=== PATIENT | female | born 1935 | race Caucasian/White ===

== ENCOUNTER 2017-06-30 01:34 | Inpatient (IN) ==
--- NOTE | 2017-06-24 08:48 | EKG Report ---
Test Performed on : 06/24/2017 08:17:50 AM Test Reason : JOINT CAMP Blood Pressure : / mmHG Vent. Rate : 068 BPM Atrial Rate : 068 BPM P-R Int : 164 ms QRS Dur : 088 ms QT Int : 374 ms P-R-T Axes : 064 -14 042 degrees QTc Int : 397 ms Normal sinus rhythm. Septal infarct , age undetermined Abnormal ECG When compared with ECG of 17-FEB-2011 09:17, premature ventricular complexes. are no longer present Questionable change in QRS axis Confirmed by Fabricio MALIK, Flavio Lee ([id number]) on 06/26/2017 6:38:22 AM
[2017-06-24 09:35] LABS: MANUAL DIFF NEEDED? NO; URINE MICRO REVIEW NEEDED? NO; URINE SOURCE CLEAN CATCH
[2017-06-24 09:38] LABS: BILIRUBIN URINE NEGATIVE (NEGATIVE); BLOOD URINE NEGATIVE (NEGATIVE); COLOR YELLOW; GLUCOSE URINE NEGATIVE (NEGATIVE); LEUKOCYTES URINE SMALL (NEGATIVE); NITRITE URINE NEGATIVE (NEGATIVE); PH URINE 6.5; PROTEIN URINE NEGATIVE (NEGATIVE); SP GRAVITY URINE 1.007; TURBIDITY URINE CLEAR (CLEAR); UROBILINOGEN URINE NORMAL (NORMAL)
[2017-06-24 09:39] LABS: BASO% 0.4 % (0.0-0.8); EOS# 0.33 X1000 (0.0-0.7); EOS% 5.9 % (0.0-10.0); HEMATOCRIT 35.8 % (37.0-47.0); HEMOGLOBIN 11.9 g/dL (12.0-16.0); LYMPH# 1.84 X1000 (1.2-3.4); MCH 30.1 PG (27-31); MCHC 33.2 g/dL (33-37); MCV 90.4 FL (81-99); MONO# 0.78 X1000 (0.11-0.59); MPV 9.8 FL (7.4-10.4); NEUT% 46.7 % (42.2-75.2); PLT 266 X1000 (130-400); RBC 3.96 XMIL (4.2-5.4); UR EPITHELIAL CELLS <10 /HPF (<10); URINE BACTERIA NEGATIVE /HPF; URINE RBC <10 /HPF (<10); URINE WBC <10 /HPF (<10)
[2017-06-24 09:51] LABS: INR 1.01; PROTIME 10.6 Seconds (9.2-11.7); PTT 25.9 Seconds (22.0-36.0)
[2017-06-24 10:08] LABS: AGAP 10; BUN 13 mg/dL (8-22); CALCIUM 8.7 mg/dL (8.8-10.2); CHLORIDE 93 mmol/L (98-107); COSMO 262; POTASSIUM 4.4 mmol/L (3.5-5.1); SODIUM 131 mmol/L (136-145); TCO2 28 mmol/L (25-35)
[2017-06-30] MEDS ORDERED: ANTIVERT PO PRN (07:33)
[2017-06-30] MEDS ORDERED: VERSED ONE (08:25)
[2017-06-30] MEDS ORDERED: ROBINUL ONE (08:26)
[2017-06-30] MEDS ORDERED: PEPCID ONE (08:57)
[2017-06-30] MEDS ORDERED: COLACE ONE (08:57)
[2017-06-30] MEDS ORDERED: REGLAN ONE (08:58)
[2017-06-30] MEDS ORDERED: KEFZOL 1 GM/D5W 1 GM/50 ML IVPB ONE (08:58)
[2017-06-30] MEDS ORDERED: LYRICA ONE (08:58)
[2017-06-30] MEDS ORDERED: CELEBREX ONE (08:58)
[2017-06-30] MEDS ORDERED: LR 1,000 ML ONE (08:59)
[2017-06-30] MEDS: PEPCID PO SCH (09:15)
[2017-06-30] MEDS ORDERED: DIPRIVAN 1% ONE (09:39)
[2017-06-30] MEDS ORDERED: XYLOCAINE-MPF 2% ONE (09:39)
[2017-06-30] MEDS ORDERED: SODIUM CHLORIDE 0.9% ONE (09:43)
[2017-06-30] MEDS ORDERED: TORADOL ONE ×2 (09:45→10:11)
[2017-06-30] MEDS ORDERED: DURAMORPH ONE (09:45)
[2017-06-30] MEDS ORDERED: NEOSPORIN G.U. IRRIGANT ONE (09:46)
[2017-06-30] MEDS ORDERED: CYKLOKAPRON 1,000 MG/NS 1,000 MG/100 ML IVPB ONE ×2 (09:46→09:47)
[2017-06-30] MEDS ORDERED: EXPAREL 1.3% ONE (09:46)
[2017-06-30] MEDS ORDERED: VANCOMYCIN ONE (09:46)
[2017-06-30] MEDS ORDERED: MARCAINE 0.25% PF ONE (09:49)
[2017-06-30] MEDS ORDERED: KETAMINE ONE (10:02)
[2017-06-30] MEDS ORDERED: DECADRON ONE (10:06)
[2017-06-30] MEDS ORDERED: OFIRMEV 1000 MG/ISOTONIC SOLN 1,000 MG/100 ML BOTTLE ONE (10:06)
[2017-06-30] MEDS ORDERED: FENTANYL ONE (10:20)
[2017-06-30 10:47] LABS: URINE MICRO REVIEW NEEDED? NO; URINE SOURCE CATH
[2017-06-30 10:52] LABS: BILIRUBIN URINE NEGATIVE (NEGATIVE); BLOOD URINE NEGATIVE (NEGATIVE); COLOR STRAW; GLUCOSE URINE NEGATIVE (NEGATIVE); LEUKOCYTES URINE NEGATIVE (NEGATIVE); NITRITE URINE NEGATIVE (NEGATIVE); PH URINE 6.5; PROTEIN URINE NEGATIVE (NEGATIVE); SP GRAVITY URINE 1.006; TURBIDITY URINE CLEAR (CLEAR); UROBILINOGEN URINE NORMAL (NORMAL)
[2017-06-30 10:54] LABS: UR EPITHELIAL CELLS <10 /HPF (<10); URINE BACTERIA NEGATIVE /HPF; URINE RBC <10 /HPF (<10); URINE WBC <10 /HPF (<10)
[2017-06-30] MEDS: DILAUDID ONE ×8 (11:53→12:40)
--- NOTE | 2017-06-30 11:58 | OPERATIVE NOTE ---
PROCEDURE DATE: 06/30/2017 PREOPERATIVE DIAGNOSIS: Degenerative joint disease, right knee. POSTOPERATIVE DIAGNOSIS: Degenerative joint disease, right knee. PROCEDURE: Right total knee replacement. SURGEON: Mikel Cabrales MD. SUPERVISOR CAPACITOR PROCESSING: JOSEPHINE Aranda. ANESTHESIA: General. COMPLICATION: None. PROCEDURE IN DETAIL: This 82-year-old female presents for right knee replacement. Risks, benefits, and no guarantees were discussed, and she is willing to proceed. She was taken to the operating room and satisfactory anesthesia obtained. The right knee was prepped and draped in usual sterile fashion. A time-out was taken to confirm operative site, procedure, and patient. The leg was wrapped with an Esmarch. Tourniquet inflated to 350 mmHg. A midline incision was made over the front of the knee followed by a quad tendon sparing arthrotomy. The patella was then everted and resurfaced with freehand technique. With the patella subluxed laterally, the knee was flexed and intramedullary hole made in the distal femur. Distal femoral cutting block was secured in 5 degrees of valgus and a distal femoral resection made. The femur was then sized to a DePuy Travelatusune size 5 femoral implant. The 4-in-1 block was secured and the anterior, posterior, and chamfer cuts sequentially made. The notch was created for the posterior stabilized design using the provided notch guide. Any remaining osteophytes were debrided off the femur. Next, the knee was flexed and a PCL retractor placed behind the tibia to protect the neurovascular bundle. The tibial cutting block was secured with an extramedullary alignment sarah. The tibial resection made. Flexion and extension gaps were roughly equal. The tibia was sized to a size 5 tibial tray. A trial reduction was performed with a size 5 tibial tray. A 5 posterior stabilized femoral component, and a 5 mm posterior stabilized poly with good range of motion and stability. The patella was sized to a 32 medialized dome patella. Drill holes were placed for the femur and the patella and all the trial implants removed. The bony surfaces were thoroughly irrigated with pulsatile lavage. Cement with a gram of vancomycin was then utilized to cement a DePuy size 5 rotating platform tibial base plate, a size 5 narrow posterior stabilized right femoral component, and a 32 medialized dome patella. Excess cement was removed with a [place] elevator as necessary. While the cement hardened, the joint capsule was injected with Exparel for pain management and Hemovac drain placed. After curing of the cement, a size 5, 5 mm thick posterior stabilized rotating platform poly was secured in the tibial tray and the knee reduced. Final range of motion was 0-120 degrees with midline patellar tracking and good soft tissue balance. The arthrotomy was then copiously irrigated and then closed over the drain with #1 Vicryl in the arthrotomy, 2-0 Vicryl in the subcutaneous, and skin marlon on the skin edges. Sterile dressings completed the closure and the patient was recovered from anesthesia and transferred to the recovery room in stable condition. No intraoperative complications were noted. Instrument count and sponge count was correct at the time of closure. cc: Andrew Cabrales MD
[2017-06-30] MEDS ORDERED: NS 1,000 ML ONE (12:21)
[2017-06-30] MEDS ORDERED: MILK OF MAGNESIA PO PRN (12:32)
[2017-06-30] MEDS ORDERED: MORPHINE IV PRN (12:32)
[2017-06-30] MEDS ORDERED: OXY IR PO PRN (12:32)
--- NOTE | 2017-06-30 12:44 | Diag Imaging Result Doc PS360 ---
KNEE 1-2 VIEWS-RIGHT - 06/30/2017 INDICATION: post op total knee TECHNIQUE: Two views COMPARISON: 03/31/2017 FINDINGS: There has been right total knee arthroplasty. Alignment is anatomic. No hardware fracture or loosening. There is been patellar resurfacing. IMPRESSION: No complication. Electronically signed by Baljinder Vincent 06/30/2017 12:41 PM
--- NOTE | 2017-06-30 13:18 | PROGRESS NOTE ---
DATE: 06/30/2017 DATE AND TIME SEEN: On 06/30/2017 at 12:30. POSTOP/PROGRESS NOTE: Ms. Howe is seen in the recovery room status post total knee replacement. She is awake and alert at the present time. She does have some mild to moderate discomfort which is controlled with Demerol. At the present time, she is afebrile with stable vital signs. There is good capillary refill in the lower extremity. The toes are up and downgoing actively. The dressing is clean and dry. Currently she is stable postop. Will plan on mobilizing her more later today or tomorrow. We will see her back tomorrow morning or sooner for any further needs. cc: Andrew Cabrales MD
[2017-06-30] MEDS: ZOFRAN IV PRN (13:33)
[2017-06-30] MEDS: NS 1,000 ML IV SCH (13:35)
[2017-06-30] MEDS: ULTRAM PO SCH ×2 (13:38→22:15)
[2017-06-30] MEDS: KEFZOL 1 GM/D5W 1 GM/50 ML IVPB IV SCH (17:09)
[2017-06-30] MEDS: TYLENOL PO SCH ×2 (17:09→22:16)
[2017-06-30] MEDS ORDERED: AMBIEN PO PRN (21:00)
[2017-06-30] MEDS: NAPROSYN PO SCH (22:15)
[2017-06-30] MEDS: COLACE PO SCH (22:16)
[2017-06-30] MEDS: LYRICA PO SCH (22:17)
[2017-07-01] MEDS: NS 1,000 ML IV SCH ×2 (01:25→13:34)
[2017-07-01] MEDS: ULTRAM PO SCH ×4 (01:36→20:08)
[2017-07-01] MEDS: KEFZOL 1 GM/D5W 1 GM/50 ML IVPB IV SCH (01:37)
[2017-07-01] MEDS: TYLENOL PO SCH ×4 (04:12→21:54)
[2017-07-01] MEDS: XARELTO PO SCH (05:35)
[2017-07-01 05:56] LABS: HEMATOCRIT 30.8 % (37.0-47.0); HEMOGLOBIN 10.2 g/dL (12.0-16.0)
[2017-07-01 06:11] LABS: AGAP 8; BUN 11 mg/dL (8-22); CALCIUM 8.2 mg/dL (8.8-10.2); CHLORIDE 96 mmol/L (98-107); COSMO 266; POTASSIUM 4.3 mmol/L (3.5-5.1); SODIUM 132 mmol/L (136-145); TCO2 28 mmol/L (25-35)
[2017-07-01] MEDS: ZOLOFT PO SCH ×2 (07:36→10:54)
[2017-07-01] MEDS: PEPCID PO SCH ×2 (07:36→10:55)
[2017-07-01] MEDS: LOPRESSOR PO SCH ×2 (07:36→10:55)
[2017-07-01] MEDS: HYZAAR 100/12.5 MG TAB PO SCH ×2 (07:37→10:54)
[2017-07-01] MEDS: SYNTHROID PO SCH ×2 (07:37→10:54)
[2017-07-01] MEDS: PERIDEX MT SCH ×3 (07:38→20:07)
[2017-07-01] MEDS: NAPROSYN PO SCH ×3 (07:38→20:08)
[2017-07-01] MEDS: COLACE PO SCH ×3 (07:38→20:07)
--- NOTE | 2017-07-01 07:45 | PROGRESS NOTE ---
DATE: 07/01/2017 SUBJECTIVE: Ms. Howe is seen on postop day 1, status post total knee replacement. At the present time, she is without any significant complaints. OBJECTIVE: She is afebrile with stable vital signs. The bandage is clean and dry. She is motor and sensory intact. There is no signs of DVT or Homans sign. PLAN: We will plan on mobilizing her today and removing all catheters and drains. She will request discharge to inpatient rehab facility and we will have the social security assessor start working on that. cc: Andrew Cabrales MD
[2017-07-01] MEDS: LYRICA PO SCH ×2 (11:00→20:13)
[2017-07-01] MEDS: ZOFRAN IV PRN (18:28)
[2017-07-02] MEDS: ULTRAM PO SCH ×3 (01:20→14:20)
[2017-07-02] MEDS: TYLENOL PO SCH ×3 (03:11→12:18)
[2017-07-02] MEDS: XARELTO PO SCH (05:06)
[2017-07-02] MEDS: NS 1,000 ML IV SCH ×2 (05:24→14:20)
[2017-07-02 05:36] LABS: HEMATOCRIT 26.5 % (37.0-47.0); HEMOGLOBIN 8.9 g/dL (12.0-16.0)
[2017-07-02] MEDS: HYZAAR 100/12.5 MG TAB PO SCH ×2 (08:40→12:18)
[2017-07-02] MEDS: LOPRESSOR PO SCH (08:41)
[2017-07-02] MEDS: PEPCID PO SCH (08:41)
[2017-07-02] MEDS: SYNTHROID PO SCH (08:42)
[2017-07-02] MEDS: NAPROSYN PO SCH (08:42)
[2017-07-02] MEDS: COLACE PO SCH (08:43)
[2017-07-02] MEDS: ZOLOFT PO SCH (08:43)
[2017-07-02] MEDS: PERIDEX MT SCH (08:44)
[2017-07-02] MEDS: LYRICA PO SCH (08:44)
[2017-07-02] MEDS: ZOFRAN IV PRN (08:49)
[2017-07-02 11:32] VITALS: BP 111/61
[2017-07-02] MEDS ORDERED: ZOFRAN PO ONE (13:55)
--- NOTE | 2017-07-03 03:56 | DISCHARGE SUMMARY ---
ADMISSION DATE: 06/30/2017 DISCHARGE DATE: 07/02/2017 ADMISSION DIAGNOSIS: Degenerative joint disease right knee. ADDITIONAL DIAGNOSIS: 1. History of hypertension. 2. Asthma. DISCHARGE DIAGNOSES: 1. Degenerative joint disease right knee. 2. History of hypertension. 3. Asthma. 4. Acute blood loss anemia. ADMITTING HISTORY AND HOSPITAL COURSE: This 82-year-old female was admitted the hospital for knee replacement. She underwent a right knee replacement successfully without complications. Postoperatively, she mobilized well. She is discharged home on the 2nd postoperative day. At the present time, she is afebrile with stable vital signs. She did have a drop in her hematocrit, but this remained stable without any active bleeding and asymptomatic. She is discharged home today for outpatient therapy. DISCHARGE MEDICATIONS: Include [place] 7.5 as needed for pain and Xarelto 10 mg once a day for 2 weeks for deep venous thrombosis prophylaxis. She is continuing her home medicines consisting of sertraline, metoprolol, meloxicam, meclizine, losartan, levothyroxine, from famotidine. She is to return in 10-12 days time for staple removal. She can return in the interim for any worsening signs or symptoms. cc: Andrew Cabrales MD
== END 2017-07-02 14:21 | disposition home health service (06) ==
LOC: SURHOLD 01:34 → 4N 11:08
PROVIDERS: ADMIT Orthopaedic Surgery Adult Reconstructive Orthopaedic Surgery; ATTEND Orthopaedic Surgery Adult Reconstructive Orthopaedic Surgery

== ENCOUNTER 2019-06-11 10:42 | Inpatient (IN) ==
[2019-06-11] MEDS ORDERED: NS 500 ML IV ONE (11:01)
[2019-06-11] MEDS ORDERED: ANTIVERT PO ONE (11:01)
[2019-06-11] MEDS ORDERED: FIORICET PO ONE (11:01)
--- NOTE | 2019-06-11 11:18 | EKG Report ---
Test Performed on : 06/11/2019 11:01:22 AM Test Reason : weakness Blood Pressure : / mmHG Vent. Rate : 073 BPM Atrial Rate : 073 BPM P-R Int : 158 ms QRS Dur : 090 ms QT Int : 388 ms P-R-T Axes : 070 -26 026 degrees QTc Int : 427 ms Normal sinus rhythm. Septal infarct (cited on or before 24-JUN-2017) Abnormal ECG When compared with ECG of 24-JUN-2017 08:17, No significant change was found Unconfirmed Result
[2019-06-11 11:32] LABS: BASO# 0.01 X1000 (0.0-0.2); BASO% 0.2 % (0.0-0.8); EOS# 0.03 X1000 (0.0-0.7); EOS% 0.5 % (0.0-10.0); HEMATOCRIT 34.3 % (37.0-47.0); HEMOGLOBIN 11.9 g/dL (12.0-16.0); IMM GRAN# 0.02 X1000 (0.0-0.04); IMM GRAN% 0.4 % (0.0-0.5); LYMPH# 1.03 X1000 (1.2-3.4); LYMPH% 18.6 % (20.5-51.1); MCH 29.2 PG (27-31); MCHC 34.7 g/dL (33-37); MCV 84.3 FL (81-99); MONO# 0.27 X1000 (0.11-0.59); MONO% 4.9 % (1.7-9.3); MPV 8.7 FL (7.4-10.4); NEUT# 4.17 X1000 (1.4-6.5); NEUT% 75.4 % (42.2-75.2); PLT 306 X1000 (130-400); RBC 4.07 XMIL (4.2-5.4); RDW 11.7 % (11.5-14.5); WBC 5.53 X1000 (4.8-10.8)
[2019-06-11 11:44] LABS: URINE SOURCE CLEAN CATCH
[2019-06-11 11:46] LABS: ESTIMATED GFR > 60
[2019-06-11 11:49] LABS: AGAP 12; ALBUMIN 4.4 g/dL (3.5-5.0); ALKALINE PHOSPHATASE 70 U/L (32-104); BUN 9 mg/dL (8-22); CALCIUM 9.2 mg/dL (8.8-10.2); CHLORIDE 84 mmol/L (98-107); COSMO 240; CREATININE 0.6 mg/dL (0.5-0.9); GLUCOSE 117 mg/dL (70-104); GOT 20 U/L (10-30); GPT 17 U/L (10-36); POTASSIUM 4.2 mmol/L (3.5-5.1); TCO2 23 mmol/L (25-35)
[2019-06-11 11:50] LABS: SODIUM 119 mmol/L (136-145)
[2019-06-11 11:53] LABS: BILIRUBIN URINE NEGATIVE (NEGATIVE); BLOOD URINE NEGATIVE (NEGATIVE); CLARITY CLEAR (CLEAR); COLOR YELLOW; GLUCOSE URINE NEGATIVE (NEGATIVE); KETONE URINE 2+(Moderate) mg/dL (NEGATIVE); LEUKOCYTES URINE 1+ (NEGATIVE); NITRITE URINE NEGATIVE (NEGATIVE); PROTEIN URINE NEGATIVE (NEGATIVE); SP GRAVITY URINE 1.005; URINE BACTERIA NEGATIVE /HFP; URINE CAST NONE SEEN /LPF; URINE CRYSTAL NONE SEEN /HPF; URINE EPITHELIAL CELLS <10 /HPF (<10); URINE RBC <10 /HPF (<10); URINE SMALL ROUND CELLS RENAL PRESENT; URINE WBC <10 /HPF (<10); URINE YEAST PRESENT /HPF; UROBILINOGEN URINE NORMAL
[2019-06-11 12:01] LABS: UR AMPHETAMINES QUAL NONE DETECTED (NONE DETECT); UR BARBITUATES QUAL NONE DETECTED (NONE DETECT); UR BENZODIAZEPIN QUAL NONE DETECTED (NONE DETECT); UR CANNABINOIDS QUAL NONE DETECTED (NONE DETECT); UR COCAINE QUAL NONE DETECTED (NONE DETECT); UR METHADONE QUAL NONE DETECTED (NONE DETECT); UR METHAMPHETAMINE QUAL NONE DETECTED (NONE DETECT); UR OPIATES QUAL NONE DETECTED (NONE DETECT); UR OXYCODONE QUAL NONE DETECTED (NONE DETECT); UR PCP QUAL NONE DETECTED (NONE DETECT); UR PROPOXYPHENE QUAL NONE DETECTED (NONE DETECT); UR TCA QUAL NONE DETECTED (NONE DETECT)
[2019-06-11] MEDS ORDERED: MORPHINE IV PRN (12:22)
[2019-06-11] MEDS ORDERED: ZOFRAN IV PRN (12:22)
--- NOTE | 2019-06-11 12:22 | PROVIDER DOCUMENTATION ---
This chart was entered by Addie Rey Scribe, acting as scribe for Bear Nieto MD. HPI-Headache - General Chief Complaint: Dizziness Stated Complaint: WEAKNESS Time Seen by Provider: 06/11/19 10:52 Source: patient, family (), EMS Allergies/Adverse Reactions: Patient Allergies Allergy/AdvReac Type Severity Reaction Status Date / Time codeine AdvReac Unknown Verified 06/26/17 10:00 Sulfa (Sulfonamide AdvReac VOMITING Verified 06/26/17 10:00 Antibiotics) Home Medications: Home Medication List Medication Instructions Recorded Confirmed Last Taken Type Famotidine [Pepcid] 20 mg PO DAILY 02/14/15 07/27/17 07/27/17 History 20 MG Levothyroxine [Synthroid] 50 mcg PO DAILY 02/14/15 07/27/17 07/27/17 History 50 MCG Meclizine [Antivert] 25 mg PO PRN PRN 02/14/15 07/27/17 07/27/17 History 25 MG Losartan/Hydrochlorothiazide 1 each PO DAILY 06/24/17 07/27/17 07/27/17 History [Losartan-Hctz 100-12.5 mg Tab] 1 EACH Metoprolol [Lopressor] 25 mg PO DAILY 06/24/17 07/27/17 07/27/17 History 25 MG Sertraline HCl 50 mg PO DAILY 06/24/17 07/27/17 07/27/17 History 50 MG Hydrocodone/Acetaminophen [Clive 1 - 2 each PO Q4-6H PRN PRN #40 07/02/17 Unknown Rx 7.5-325 Tablet] tablet Tramadol/APAP [Ultracet 1 - 2 ea PO Q6H PRN PRN #30 tab 07/27/17 Unknown Rx 37.5MG/325Mg] - History of Present Illness-Headache Nature of Presenting Problem: 84 yowf presents to the ed via ems with c/o VIVAR, panic attacks, anxious, dizziness and insomnia. pt sts "I feel like Im losing my mind and my thoughts are just crowding in my head" "I just feel fearful and I don't know why" pt has seen pcp dr lima about sx and he sts it is anxiety from being sick last year. pt on exam is anxious and c/o global VIVAR. pt is nontoxic in appearance Headache Location: reports: global Quality of Pain: reports: throbbing Severity: reports: moderate Onset/Duration: reports: 2 days ago ( but anxious sx have been "for a while") Timing: reports: still present Headache Context: reports: nothing Headache History: reports: occasional headaches Any recent trauma/injury?: reports: none Headache severity at the maximum: moderate Preceding Symptoms: reports: none Associated Symptoms: reports: headache, dizziness, insomnia, other (anxiety). denies: short of breath, fever/chills, nausea, numbness in legs/feet, seizures, slurred speech, vomiting, vision changes Similar Symptoms Previously?: Yes Recently seen or treated by another doctor?: Yes (seen dr lima) Review of Systems - Adult - REVIEW OF SYSTEMS - ADULT Constitutional: denies: chills, fever Eyes: reports: no symptoms reported Ears, Nose, Mouth & Throat: reports: no symptoms reported Cardiovascular: denies: chest pain, palpitations Respiratory: denies: cough, shortness of breath, wheezing Gastrointestinal: denies: abdominal pain, diarrhea, nausea, vomiting Genitourinary: reports: no symptoms reported Musculoskeletal: denies: back pain, neck pain Integumentary: reports: no symptoms reported Neurological: reports: see HPI, dizziness/vertigo, headache/migraines. denies: ataxia, loss of balance, numbness, paresthesia, seizure, slurred speech, syncope, tremors Psychiatric: reports: see HPI, anxiety, insomnia. denies: suicidal thoughts Endocrine: reports: no symptoms reported Hematologic/Lymphatic: reports: no symptoms reported Allergic/Immunologic: reports: no symptoms reported All Other Systems: Reviewed and Negative Past History - Adult - PAST MEDICAL HISTORY-ADULT Review of Records: reports: Old Records Reviewed, Nursing Assessment Review, Medications Reviewed, Social history reviewed & non-contributory. Major Childhood Illnesses: reports: denies history Cardiovascular: reports: HTN Respiratory: reports: asthma Gastrointestinal: reports: denies history, GERD Obstetrical/Gynecological: reports: denies history Genitourinary: reports: denies history Musculoskeletal: reports: other (popliteal cyst, right knee) Hand Dominance: Right Handed Neurological: reports: denies history Psychiatric: reports: anxiety Endocrine/Immune: reports: denies history Other Conditions: reports: cataract/glaucoma - PRIOR SURGERIES/PROCEDURES Surgical/Procedure History: reports: hysterectomy, hernia repair, joint replacement (right hip 6yr prior, right knee 06-30-17) - IMMUNIZATION STATUS Childhood Immunizations: See Nurse Assessment Flu Vaccine: See Nurse Assessment - FAMILY HISTORY Family History: reviewed, not pertinent - SOCIAL HISTORY Smoking: denies Substance Use: denies Living Situation: family Physical Exam- Neurological - Physical Exam-Neuro Initial Vital Signs Reviewed: Yes General Appearance: appears well, alert, mild distress, anxious Eye Exam: bilateral eye: normal inspection, PERRL HENMT: moist mucous membranes Head Injury: no evidence of injury Neck: non-tender, full range of motion, normal inspection Respiratory: chest non-tender, lungs clear Cardiovascular: normal peripheral pulses, regular rate, rhythm Abdominal Exam: non tender, soft Lymphatic: no adenopathy Extremity: normal range of motion, non-tender, normal gait, normal inspection critical care registered nurse Exam: normal hearing, normal speech, PERRL Neurologic: grossly normal, no motor/sensory deficits Integumentary: normal color, normal turgor, warm/dry Psych/Mental Status: normal thought content, normal thought process, oriented x 3, anxious - Glascow Coma Scale Best Eye Response: (4) open spontaneously Best Verbal Response: (5) oriented Best Motor Response: (6) obeys commands Total Glascow Score: 15 Progress - PLAN OF CARE/RESULTS Progress/Plan/Lab Results: Vital Signs - 8 hr 06/11/19 10:52 Temperature 97.9 F Pulse Rate 77 Respiratory Rate 16 Blood Pressure 175/75 O2 Sat by Pulse Oximetry 99 Laboratory Results - last 24 hr 06/11/19 06/11/19 06/11/19 11:15 11:15 11:15 WBC 5.53 RBC 4.07 L Hgb 11.9 L Hct 34.3 L MCV 84.3 MCH 29.2 MCHC 34.7 RDW Std Deviation 11.7 Plt Count 306 MPV 8.7 Immature Gran % (Auto) 0.4 Neut % (Auto) 75.4 H Lymph % (Auto) 18.6 L Karn[place] % (Auto) 4.9 Eos % (Auto) 0.5 Baso % (Auto) 0.2 Immature Gran # (Auto) 0.02 Neut # (Auto) 4.17 Lymph # (Auto) 1.03 L [place] # (Auto) 0.27 Eos # (Auto) 0.03 Baso # (Auto) 0.01 Sodium 119 L* Potassium 4.2 Chloride 84 L Carbon Dioxide 23 L Anion Gap 12 BUN 9 Creatinine 0.6 Estimated GFR/1.73 m2 > 60 BUN/Creatinine Ratio 15 Glucose 117 H Calculated Osmolality 240 Calcium 9.2 Total Bilirubin 0.70 AST 20 ALT 17 Alkaline Phosphatase 70 Total Protein 7.0 Albumin 4.4 Globulin 3.0 Albumin/Globulin Ratio 2.0 Urine Source Urine Color Urine Clarity Urine pH Ur Specific [place] Urine Protein Urine Ketones Urine Blood Urine Nitrite Urine Bilirubin Urine Urobilinogen Urine Microscopic RBC Urine WBC Urine Microscopic WBC Ur Epithelial Cells Urine Crystals Small Round Cells Urine Bacteria Urine Casts Urine Yeast Urine Glucose Urine Opiates Screen Ur Oxycodone Screen Urine Methadone Screen U Propoxyphene Qual Ur Barbituates Screen Ur Tricyclics Screen Ur Phencyclidine Scrn Ur Amphetamines Screen U Methamphetamines Scrn U Benzodiazepines Scrn Urine Cocaine Screen U Cannabinoids Screen Plasma/Serum Ethyl Alc 06/11/19 06/11/19 11:38 11:43 WBC RBC Hgb Hct MCV MCH MCHC RDW Std Deviation Plt Count MPV Immature Gran % (Auto) Neut % (Auto) Lymph % (Auto) [place] % (Auto) Eos % (Auto) Baso % (Auto) Immature Gran # (Auto) Neut # (Auto) Lymph # (Auto) [place] # (Auto) Eos # (Auto) Baso # (Auto) Sodium Potassium Chloride Carbon Dioxide Anion Gap BUN Creatinine Estimated GFR/1.73 m2 BUN/Creatinine Ratio Glucose Calculated Osmolality Calcium Total Bilirubin AST ALT Alkaline Phosphatase Total Protein Albumin Globulin Albumin/Globulin Ratio Urine Source CLEAN CATCH Urine Color YELLOW Urine Clarity CLEAR Urine pH 8.0 Ur Specific [place] 1.005 Urine Protein NEGATIVE Urine Ketones 2+(Moderate) A Urine Blood NEGATIVE Urine Nitrite NEGATIVE Urine Bilirubin NEGATIVE Urine Urobilinogen NORMAL Urine Microscopic RBC <10 Urine WBC 1+ A Urine Microscopic WBC <10 Ur Epithelial Cells <10 Urine Crystals NONE SEEN Small Round Cells RENAL PRESENT Urine Bacteria NEGATIVE Urine Casts NONE SEEN Urine Yeast PRESENT Urine Glucose NEGATIVE Urine Opiates Screen NONE DETECTED Ur Oxycodone Screen NONE DETECTED Urine Methadone Screen NONE DETECTED U Propoxyphene Qual NONE DETECTED Ur Barbituates Screen NONE DETECTED Ur Tricyclics Screen NONE DETECTED Ur Phencyclidine Scrn NONE DETECTED Ur Amphetamines Screen NONE DETECTED U Methamphetamines Scrn NONE DETECTED U Benzodiazepines Scrn NONE DETECTED Urine Cocaine Screen NONE DETECTED U Cannabinoids Screen NONE DETECTED Plasma/Serum Ethyl Alc Orders Category Date Time Status Nursing- Obtain EKG ONCE Care 06/11/19 11:00 Active ALCOHOL BLOOD Stat Lab 06/11/19 11:15 Completed CBC WITH ELECTRONIC DIFF [HEME] Stat Lab 06/11/19 11:15 Completed COMPREHENSIVE METABOLIC PANEL [CHEM] Stat Lab 06/11/19 11:[address] W/POSS RFLX CULT [URINALYSIS] Stat Lab 06/11/19 11:43 Completed URINE CULTURE [RM] Routine Lab 06/11/19 11:[address] DRUG SCREEN [address] Stat Lab 06/11/19 11:38 Completed 0.9% Sodium Chloride Inj [Ns] 500 ml Med 06/11/19 11:01 Discontinued IV 999 mls/hr Butalbital/APAP/Caffeine [Fioricet] Med 06/11/19 11:01 Discontinued 1 each PO NOW ONE Meclizine [Antivert] Med 06/11/19 11:01 Discontinued 50 mg PO NOW ONE EKG [EKG] Stat Ther 06/11/19 11:00 Draft Result Diagrams: 06/11/19 11:15 06/11/19 11:15 - REASSESSMENT Reassessment #1 Time Reassessed: 12:11 Status: unchanged - EKG 1 Time of EKG reading by physician:: 11:01 EKG Read and Signed by:: Bear Nieto EKG Interpretation (*Must complete 3 of following elements*): Abnormal Rate: 73 Rhythm: nsr [place]: normal QRS: normal [place] Interval: normal ST Wave: normal Comments: septal infarct, age undetermined - CONSULTS/PCP/HOSPITALIST Notification #1 *Consult/PCP/Hospitalist*: hospitalist cherelle claudio Time Discussed: 12:17 Reason/Comments: sts pt is dr lima #2 Consult: dr lima Time Discussed: 12:21 Consult Disposition: Admit Departure - Departure Date of Disposition Decision: 06/11/19 Time of Disposition Decision: 12:21 DIAGNOSIS: Hyponatremia Disposition: ADMITTED INPATIENT 09 Certified Medical Emergency: Emergent Condition: Stable Referrals and Follow-Ups: None,PCP [Primary Care Provider] - - Critical Care Note This patient required my direct & personal management of CC.: No Attestation - Physician/ MARGARITA Attestation Patient care was provided by Advanced Practice Provider:: No The physician spent face to face time with patient:: Yes Advanced Practice Provider documentation review:: Supervising physician onsite and consulted in the evaluation and care of this patient. The physician did have a face to face encounter with the patient. This chart was documented by the indicated scribe, (Addie Rey Scribe) and accurately reflects the services I performed and decisions made by me, Bear Nieto MD, as attested by the provider's signature.
[2019-06-11] MEDS: TYLENOL PO PRN ×2 (14:37→18:18)
[2019-06-11] MEDS: NS 1,000 ML IV SCH (18:34)
[2019-06-11] MEDS: PEPCID PO SCH (18:34)
[2019-06-11] MEDS: ANTIVERT PO PRN (18:35)
[2019-06-12 05:44] LABS: BASO# 0.01 X1000 (0.0-0.2); BASO% 0.2 % (0.0-0.8); EOS# 0.12 X1000 (0.0-0.7); EOS% 2.2 % (0.0-10.0); HEMATOCRIT 31.8 % (37.0-47.0); HEMOGLOBIN 10.7 g/dL (12.0-16.0); IMM GRAN# 0.01 X1000 (0.0-0.04); IMM GRAN% 0.2 % (0.0-0.5); LYMPH# 1.55 X1000 (1.2-3.4); LYMPH% 28.2 % (20.5-51.1); MCH 28.8 PG (27-31); MCHC 33.6 g/dL (33-37); MCV 85.7 FL (81-99); MONO# 0.61 X1000 (0.11-0.59); MONO% 11.1 % (1.7-9.3); MPV 9.1 FL (7.4-10.4); NEUT# 3.19 X1000 (1.4-6.5); NEUT% 58.1 % (42.2-75.2); PLT 306 X1000 (130-400); RBC 3.71 XMIL (4.2-5.4); RDW 12.1 % (11.5-14.5); WBC 5.49 X1000 (4.8-10.8)
[2019-06-12] MEDS: SYNTHROID PO SCH ×2 (06:13→08:59)
[2019-06-12 06:15] LABS: AGAP 9; ALBUMIN 3.8 g/dL (3.5-5.0); ALKALINE PHOSPHATASE 59 U/L (32-104); BUN 9 mg/dL (8-22); CALCIUM 8.8 mg/dL (8.8-10.2); CHLORIDE 92 mmol/L (98-107); COSMO 249; CREATININE 0.7 mg/dL (0.5-0.9); ESTIMATED GFR > 60; GLUCOSE 103 mg/dL (70-104); GOT 17 U/L (10-30); GPT 15 U/L (10-36); POTASSIUM 3.9 mmol/L (3.5-5.1); SODIUM 124 mmol/L (136-145); TCO2 23 mmol/L (25-35); TOTAL PROTEIN 6.2 g/dL (6.3-8.3)
[2019-06-12] MEDS: PEPCID PO SCH (08:52)
[2019-06-12] MEDS: COZAAR PO SCH (08:53)
[2019-06-12] MEDS: TYLENOL PO PRN (13:44)
[2019-06-12] MEDS: ANTIVERT PO PRN (15:06)
[2019-06-12] MEDS: NS 1,000 ML IV SCH (17:41)
[2019-06-13] MEDS: TYLENOL PO PRN ×4 (02:58→21:41)
[2019-06-13] MEDS: SYNTHROID PO SCH (06:20)
[2019-06-13 06:53] LABS: BASO# 0.02 X1000 (0.0-0.2); BASO% 0.4 % (0.0-0.8); EOS# 0.25 X1000 (0.0-0.7); EOS% 4.6 % (0.0-10.0); HEMATOCRIT 31.7 % (37.0-47.0); HEMOGLOBIN 10.7 g/dL (12.0-16.0); IMM GRAN# 0.01 X1000 (0.0-0.04); IMM GRAN% 0.2 % (0.0-0.5); LYMPH# 1.82 X1000 (1.2-3.4); LYMPH% 33.5 % (20.5-51.1); MCH 29.2 PG (27-31); MCHC 33.8 g/dL (33-37); MCV 86.6 FL (81-99); MONO# 0.56 X1000 (0.11-0.59); MONO% 10.3 % (1.7-9.3); MPV 8.5 FL (7.4-10.4); NEUT# 2.77 X1000 (1.4-6.5); PLT 258 X1000 (130-400); RBC 3.66 XMIL (4.2-5.4); RDW 12.3 % (11.5-14.5); WBC 5.43 X1000 (4.8-10.8)
[2019-06-13 07:24] LABS: AGAP 11; ALBUMIN 3.7 g/dL (3.5-5.0); ALKALINE PHOSPHATASE 56 U/L (32-104); BUN 10 mg/dL (8-22); CALCIUM 8.5 mg/dL (8.8-10.2); CHLORIDE 94 mmol/L (98-107); COSMO 254; CREATININE 0.7 mg/dL (0.5-0.9); ESTIMATED GFR > 60; GLUCOSE 93 mg/dL (70-104); GOT 16 U/L (10-30); GPT 13 U/L (10-36); POTASSIUM 3.8 mmol/L (3.5-5.1); SODIUM 127 mmol/L (136-145); TCO2 22 mmol/L (25-35); TOTAL PROTEIN 5.8 g/dL (6.3-8.3)
[2019-06-13] MEDS: COZAAR PO SCH (09:16)
[2019-06-13] MEDS: PEPCID PO SCH (09:17)
[2019-06-13] MEDS: ANTIVERT PO PRN ×2 (14:42→22:16)
[2019-06-13 19:42] LABS: AGAP 9; ALBUMIN 3.8 g/dL (3.5-5.0); ALKALINE PHOSPHATASE 57 U/L (32-104); BUN 14 mg/dL (8-22); CALCIUM 8.7 mg/dL (8.8-10.2); CHLORIDE 95 mmol/L (98-107); COSMO 261; CREATININE 0.7 mg/dL (0.5-0.9); ESTIMATED GFR > 60; GLUCOSE 122 mg/dL (70-104); GOT 15 U/L (10-30); GPT 14 U/L (10-36); POTASSIUM 4.4 mmol/L (3.5-5.1); SODIUM 129 mmol/L (136-145); TCO2 25 mmol/L (25-35); TOTAL PROTEIN 5.6 g/dL (6.3-8.3)
[2019-06-14] MEDS: SYNTHROID PO SCH ×2 (04:51→06:04)
[2019-06-14] MEDS: TYLENOL PO PRN (06:36)
[2019-06-14 06:46] LABS: AGAP 6; ALKALINE PHOSPHATASE 57 U/L (32-104); BUN 10 mg/dL (8-22); CALCIUM 8.9 mg/dL (8.8-10.2); CHLORIDE 100 mmol/L (98-107); COSMO 261; CREATININE 0.7 mg/dL (0.5-0.9); ESTIMATED GFR > 60; GLUCOSE 92 mg/dL (70-104); GOT 16 U/L (10-30); GPT 14 U/L (10-36); POTASSIUM 4.4 mmol/L (3.5-5.1); SODIUM 131 mmol/L (136-145); TCO2 25 mmol/L (25-35); TOTAL PROTEIN 5.8 g/dL (6.3-8.3)
[2019-06-14 07:37] VITALS: BP 130/74
[2019-06-14] MEDS: PEPCID PO SCH (08:57)
[2019-06-14] MEDS: COZAAR PO SCH (08:57)
[2019-06-14] MEDS: ANTIVERT PO PRN (09:21)
[2019-06-15] MEDS ORDERED: COZAAR PO SCH (09:00)
--- NOTE | 2019-07-10 10:41 | HISTORY AND PHYSICAL ---
HISTORY OF PRESENT ILLNESS: The patient presented to the emergency room complaining of generalized weakness and vague dizziness. She said she called an ambulance to bring her here to the emergency room, complained of a headache, panic attacks, anxiety, dizziness and insomnia. She has a history of anxiety, history of shock therapy in the past. The patient states, "I feel like I'm losing my mind. My thoughts are crowding in my head. I just feel fearful and do not know why." The patient had been seen earlier by myself about her symptoms, and I told her it is anxiety from her being sick for approximately a year, going through multiple surgeries. The patient is anxious, describing a global. She was nontoxic when she presented to the ER with this throbbing moderate headache of 2 days' duration that was still present. She has a history of occasional headaches. No trauma. She has some associated dizziness and insomnia but denies shortness of breath, fever, chills, nausea, numbness of legs and feet, seizures, slurred speech, vomiting, visual changes. She has had symptoms like this previously. ALLERGIES: She is allergic to codeine and sulfa. CURRENT MEDICATIONS: Pepcid 20, levothyroxine 50, meclizine 25 p.o. p.r.n. q.6, losartan 100, hydrochlorothiazide 12.5, metoprolol 25, Zoloft 50, hydrocodone, tramadol that she uses p.r.n. on occasions. We are not sure she even has prescriptions of these currently. REVIEW OF SYSTEMS: She denies chills, fever, significant weight gain or weight loss. Eyes: Visual acuity is unchanged. No field cuts. No irritation of her eyes or lids. Ears, nose and throat: No pharyngitis, sinusitis or otitis. Cardiovascular: She denies chest pain, palpitations, edema, PND or orthopnea. Respiratory: Denies cough, shortness of breath, wheezing, phlegm production. Gastrointestinal: Denies abdominal pain, diarrhea, nausea, vomiting, GI blood loss. Genitourinary: No polyuria, dysuria, hematuria, pyuria, significant nocturia. Musculoskeletal: Denies back pain and neck pain. Skin: No lesions or rashes are identified. Neurologic: She says she is dizzy. Feels like the room is spinning around. Feels like she has a migraine. No ataxia, loss of balance, numbness, paresthesias, slurred speech, syncope or tremors. Denies suicidal thoughts. Endocrine: No polyuria or polydipsia, heat or cold intolerance. Hematologic: No clotting or bleeding disorders. No DVTs or PTEs. No bruising. Allergies: No cough, wheeze, rhinitis, irritated eyes. Otherwise negative. PAST MEDICAL HISTORY: She has hypertension, history of asthma, history of reflux disease. Denies any significant MEDICAL CASH POSTER issues. Musculoskeletal: She has a popliteal cyst behind her right knee, otherwise negative. She is right handed. Neurologic: No focal neurological deficits. No seizures. No syncope. No altered mental status. Psychiatry: She is anxious and dwelling on her illnesses and is calling the office over and over again. Endocrine: Negative. Eyes: She reports cataracts and glaucoma. PAST SURGICAL HISTORY: She has had a hysterectomy, hernia repair, joint replacement of right hip 6 years prior, right knee in 06/2017. SOCIAL HISTORY: She denies smoking. Denies alcohol use. Lives with her current . PHYSICAL EXAMINATION: VITAL SIGNS: At the time of admission, her temperature was 97.9, pulse was 77, respiratory rate was 16, blood pressure 175/75. O2 saturation was 99%. HEENT: Head was normocephalic. Eyes were PERRL. EOMs intact. Sclerae clear. Fundi benign. Nares patent. Oropharynx negative. NECK: Supple. Bounding carotids without thyromegaly or lymphadenopathy. CHEST: Clear. No consolidative findings. ABDOMEN: Soft. No hepatosplenomegaly. No CVA tenderness. Positive bowel sounds. No bruits. EXTREMITIES: Negative for cyanosis, clubbing or edema. NEUROLOGICAL: Intact. DIAGNOSTIC DATA: Her blood work on admission showed hematocrit was 34.3, white count was 5513, platelet count was 306,000. Her differential was slightly left shifted, neutrophils 75.4%. Her sodium was 119, potassium 4.2, chloride 23, CO2 was 12, BUN was 9, creatinine 0.6, GFR greater than 60, BUN to creatinine ratio of 15, glucose 117. LFTs were normal. Urinalysis with 2+ ketones, otherwise negative, 1.005 specific gravity, pH was 8, no significant cells in her urine. Drug screen was negative. EKG was possible septal scar, otherwise normal sinus rhythm. ASSESSMENT AND PLAN: She was admitted with hyponatremia and anxiety, history of hypertension, history of thyroid hormone replacement on 75 mcg of thyroid, lorazepam 2 mg at bedtime, losartan/hydrochlorothiazide, Zoloft 50, amlodipine 2.5, Pepcid 20. She was admitted for hyponatremia and anxiety, background issues of thyroid hormone replacement and chronic anxiety. cc: Miguel Matamoros MD
--- NOTE | 2019-07-10 10:43 | PROGRESS NOTE ---
DATE: 06/12/2019 The patient was admitted with hyponatremia. She is afebrile, pulse 75, respiratory rate 18, blood pressure 142/59, O2 saturation 98% on room air. The patient was admitted with a sodium of 119, presumably due to her taking hydrochlorothiazide. She had been getting some saline, and her current sodium is 124. BUN and creatinine are 9 and 0.7. She is in no distress. Still feels weak, anxious. We will continue our infusion. cc: Miguel Matamoros MD
--- NOTE | 2019-07-10 10:44 | PROGRESS NOTE ---
DATE: 06/13/2019 This is an 84-year-old female with a history of hypertension, on hydrochlorothiazide, had a sodium of 119. She had a similar history in the past that caused her anxiety and just general weakness. Today, her sodium is 129, potassium 4.4, chloride 95, CO2 is 25, BUN is 14, creatinine 0.7. She is afebrile, pulse is 65, respiratory rate 20, blood pressure 133/78, O2 saturation was 99%. She is mostly complaining of weakness and fatigue. cc: Miguel Matamoros MD
--- NOTE | 2019-07-10 10:48 | DISCHARGE SUMMARY ---
ADMISSION DATE: 06/11/2019 DISCHARGE DATE: 06/14/2019 HISTORY OF PRESENT ILLNESS: This is a patient of mine from the office who has a history of hypertension, along with anxiety, thyroid hormone replacement, reflux disease, insomnia, depression. She recently presented with just dizziness, feeling poorly. In the ER, she had a 119 sodium. We placed her on replacement therapy. We got her sodium up to 131 at the time of discharge. We were going to discharge her to her home. We have stopped her hydrochlorothiazide. We will repeat her evaluation then. She is still very anxious about her 's illness and her illnesses and her dizziness and her weakness. I think this is mostly just anxiety from her recent issues with all kinds of health problems with her . cc: Miguel Matamoros MD
== END 2019-06-14 11:30 | DRG 641 ==
LOC: P.ED 10:42 → P.MEDSURG 12:44
PROVIDERS: ATTEND Internal Medicine